=== PATIENT | female | born 1950 | race Caucasian/White ===

== ENCOUNTER 2025-07-21 20:44 | Inpatient (IN) | payer MEDICARE, BC ==
[~2025-07-21] VITALS: Ht 165.1 cm; Wt 79.0 kg
--- NOTE | 2025-07-21 21:04 | Physician Documentation ---
History of Present Illness ~ Chief Complaint: Confused Stated Complaint: TRANSFER Time Seen by MD: 21:03 OK to notify your PCP?: Yes HPI 74-year-old female, history of Parkinson's and dementia, transfer from an outside hospital for possible stroke rule out Per report and paperwork with the patient, she presented with worsening weakness and left-sided arm and leg difficulties. Her workup was unremarkable including laboratory testing and CT of the head and CTA head and neck. Neurology recommended admission for MRI. In the ED, the patient is pleasant and awake. She denies any concerns. She tells me she intermittently does have trouble with her left arm and leg, but denies any current weakness or numbness. She denies any symptoms currently. Medication Reconciliation Allergies: Coded Allergies: bee venom protein (honey bee) (Verified Allergy, Severe, ANAPHYLAXIS, 07/21/25) fentanyl (Unverified Allergy, Unknown, 07/21/25) haloperidol (Unverified Allergy, Unknown, 07/21/25) lamotrigine (Unverified Allergy, Unknown, 07/21/25) risperidone (Unverified Allergy, Unknown, 07/21/25) Review of Systems All Other Systems at this time: Reviewed and Negative Physical Exam Vital Signs: Temperature: 98.1, Source: Oral, Heart Rate: 69, Respiratory Rate: 16, BP: 150/94, Pulse Oximetry: 96, Weight: 79.000 Oxygen Flow Rate: 2.0 Physical Exam General: This is a pleasant older woman sitting calmly in bed, smiling, conversant HEENT: Atraumatic, oropharynx is moist Heart: Regular rate and rhythm, normal-appearing peripheral perfusion Lungs: normal work of breathing, normal oxygen saturation on room air Neuro: Alert and oriented, has some trouble with history questions. She does have grossly normal strength in all 4 extremities, does not seem to have significant left arm or leg weakness Psychiatric: Calm and cooperative with exam Progress Results/Orders Results/Orders Orders - RISHI MATAMOROS MD Page Hospitalist (07/21/25 21:35) Completed Orders - RISHI MATAMOROS MD Cbc/Diff (07/21/25 21:03) CMP (07/21/25 21:03) Hgb A1c (07/21/25 21:27) MG (07/21/25 21:27) PBNP (07/21/25 21:27) Medications Received in ER Medications (Trade) Dose Ordered Sig/Rachel Route PRN Reason Start Time Stop Time Status Last Admin Dose Admin (Lipitor tablet) 40 mg DAILY PO 07/21/25 22:55 07/22/25 00:11 40 MG (Ecotrin tablet) 1 tab DAILY PO 07/21/25 22:55 07/22/25 00:12 1 TAB Vital Signs 07/21/25 07/21/25 07/21/25 07/21/25 20:53 21:39 21:42 22:45 Temp 98.1 Pulse 69 67 75 Resp 16 12 14 15 B/P (MAP) 150/94 143/90 (107) 160/113 (129) Pulse Ox 96 97 98 O2 Flow Rate 2.0 2.0 2.0 Laboratory Tests Test 07/21/25 21:27 White Blood Count 10.6 Red Blood Count 4.59 Hemoglobin 13.8 Hematocrit 41.4 Mean Corpuscular Volume 90.3 Mean Corpuscular Hemoglobin 30.2 Mean Corpuscular Hemoglobin Concent 33.4 Red Cell Distribution Width 17.4 H Platelet Count 189 Mean Platelet Volume 9.1 Neutrophils (%) (Auto) 61.9 Lymphocytes (%) (Auto) 26.1 Monocytes (%) (Auto) 9.2 Eosinophils (%) (Auto) 1.8 Basophils (%) (Auto) 1.0 Neutrophils # (Auto) 6.6 Lymphocytes # (Auto) 2.8 Monocytes # (Auto) 1.0 H Eosinophils # (Auto) 0.2 Basophils # (Auto) 0.1 CBC Comment Platelet Estimate Normal Red Blood Cell Morphology Perf Basophilic Stippling Anisocytosis 1+ Prothrombin Time 10.9 INR International Normalized Ratio 1.1 Activated Partial Thromboplast Time 28 Coagulation Comments Sodium Level 143 Potassium Level 3.6 Chloride Level 104 Carbon Dioxide Level 29.8 Anion Gap 9 Blood Urea Nitrogen 19 H Creatinine 0.81 Estimated GFR/1.73 m2 69 BUN/Creatinine Ratio 23.5 H Glucose Level 95 Hemoglobin A1c 5.2 Calcium Level 9.1 Magnesium Level 2.0 Total Bilirubin 0.6 Aspartate Amino Transf (AST/SGOT) 15 Alanine Aminotransferase (ALT/SGPT) 16 Alkaline Phosphatase 47 Pro-B-Type Natriuretic Peptide 124 Total Protein 7.3 Albumin 3.3 L Globulin 4.0 Albumin/Globulin Ratio 0.8 L Chemistry Comments EKG/XRAY/CT/US/VASC/MRI Chest X-Ray : Additional Comments I personally interpreted the x-ray, and it shows: No focal consolidation, no significant pulmonary edema, no pneumothorax Consults/PCP Consults/PCP : Additional Comment Consult: I spoke to the internal medicine service, for admission in the hosp ital Medical Decision Making Additional information obtaine: old records Findings Reviewed records including imaging from outside hospital Differential Dx:Considerations: Include: anemia, CVA, dehydration, dysrhythmia, electrolyte imbalance, myocardial infarction, renal failure Additional Information The patient presents as a transfer with reported left-sided weakness. On my exam she does not have any significant weakness at this time. She has no other acute complaints. Labs will be repeated and she will be admitted to the medicine service for an MRI and further treatment. Departure Impression: Primary Impression: Weakness Referrals: NO PRIMARY CARE PROVIDER (PCP) Signature Scribe Signature: na Attestation: RISHI Douglas MD Jul 21, 2025 21:04
[2025-07-21 21:33] LABS: MEAN PLATELET VOLUME 9.1 FL (7.4-10.4); RED CELL DISTRIBUTION WIDTH 17.4 % (11.5-14.5)
[2025-07-21 22:01] LABS: CREATININE 0.81 MG/DL (0.40-0.90); TOTAL CARBON DIOXIDE 29.8 MMOL/L (24-32); eCRCL 56 ML/MIN; eGFR 69 ML/MIN
[2025-07-21 22:41] LABS: PLATELET ESTIMATE NORMAL
[2025-07-21] MEDS ORDERED: mag hydrox/Alum hydrox/simeth 30ml oral suspension PO PRN (22:55)
[2025-07-21] MEDS ORDERED: magnesium hydroxide 30ml (MOM) UD suspension PO PRN (22:55)
[2025-07-21] MEDS ORDERED: potassium Cl 40MEQ/1/2NS 520ml 520 ML IV PRN (22:55)
[2025-07-21] MEDS ORDERED: magnesium sulf-water 2g/50mL 50 ML IV PRN (22:55)
[2025-07-21] MEDS ORDERED: magnesium Cl slow-release 64mg tablet PO PRN (22:55)
[2025-07-21] MEDS ORDERED: potassium Cl 20 mEq SR tablet PO PRN ×2 (22:55)
[2025-07-21] MEDS ORDERED: magnesium sulf-water 4G/100mL 100 ML IV PRN (22:55)
--- NOTE | 2025-07-21 23:06 | HISTORY AND PHYSICAL-Residence ---
History & Physical Providers to CC Resident Creating Document: SHAHBAZ CARDENAS, RES ~ History of Present Illness Reason for Admit\Complaint: Stroke-like symptoms History of Present Illness This is a 74-year-old female with a history of NPH, dementia, bipolar disorder, Parkinson's disease was transferred from [facility] with chief complaint of weakness and functional decline. She was redirected by PCP to ED of [facility]. Patient is a poor historian and history is limited due to underlying dementia. Patient lives with her and endorses that lately she has not been very confident while walking and has had few falls related to her weakness and deconditioning. She denies any other symptoms including chest pain, shortness of breath, abdominal pain, swelling legs, nausea, vomiting, diarrhea. Patient ambulates using a cane at home. She has a history of knee replacement and metal in the right knee. ED course at [facility]: On examination, Patient had some weakness in the and had difficulty following commands, NIH score four, (inaccurate due to dementia). Patient was unable to transfer independently. Tele neurologist at [facility] was consulted who recommended stroke workup including CT, CTA and MRI. CT showed no acute intracranial abnormality but showed senescent changes of the brain and they recommended MRI to exclude acute ischemic process. CTA showed no significant stenosis or aneurysm, dissection. Chest x-ray was normal. Previous MRI few months ago showed NPH. Allergies: Coded Allergies: bee venom protein (honey bee) (Verified Allergy, Severe, ANAPHYLAXIS, 07/21/25) fentanyl (Unverified Allergy, Unknown, 07/21/25) haloperidol (Unverified Allergy, Unknown, 07/21/25) lamotrigine (Unverified Allergy, Unknown, 07/21/25) risperidone (Unverified Allergy, Unknown, 07/21/25) Past Medical History Past Medical History NPH, dementia, bipolar disorder, Parkinson's disease Past Surgical History Surgical History Comment Orthopedic surgery in right knee Past Social History Social History Comment Denies smoking, alcohol, drugs. Lives with and ambulates using a cane ROS ROS Constitutional: No fever, chills, dizziness, weakness, weight gain or loss Eyes: No pain, erythema, discharge, blurring of vision ENT: No sore throat, epistaxis, tinnitus Cardiovascular: No palpitations, syncope, lower extremity edema, paroxysmal nocturnal dyspnea Respiratory: No hemoptysis Gastrointestinal: Normal appetite. No nausea, vomiting, diarrhea, constipation, hematemesis, abdominal pain, bloating, melena or fresh blood Genitourinary: No frequency, urgency, nocturia, hematuria or dysuria Musculoskeletal: No arthralgias or myalgias Integumentary: No change in skin, hair, nails. No swelling, bruising, abrasions Neurologic: Poor memory, No headache, neck pain, numbness or tingling of the extremities, reduced referral management liaison strength, weakness in the left arm and leg Psychiatric: No delusions, depression, loss of interest in normal activity or change in sleep pattern, hallucinations, suicidal ideations Endocrine: Positive for fatigue, generalized weakness, no polydipsia, polyuria, change in appetite, heat or cold intolerance, sweating, dry skin Hematological: No bleeding, petechiae, bruising Allergies: No asthma or urticaria Exam Vitals: Vital Signs Date Time Temp Pulse Resp B/P (MAP) Pulse Ox O2 Delivery O2 Flow Rate FiO2 07/21/25 21:42 67 14 143/90 (107) 97 2.0 07/21/25 20:53 98.1 General: General: well developed, well nourished. Awake , alert, and oriented x4, resting comfortably in the bed, in no acute distress . Poor memory HEENT: Atraumatic, normocephalic, EOMI, anicteric sclera B; pink conjunctiva; PERRLA, normal oropharynx, moist oral and nasal mucosa. Tympanic membrane , nose , throat clear. Neck: Trachea midline. Supple, full range of motion, no JVD, bruit , hepatojugular reflex , lymphadenopathy or masses, or other lesions Cardiac: Regular rhythm, regular rate, 3/6 systolic ejection murmur in the right 2nd intercostal space radiating to the carotid, no rubs, or gallops. Normal S1 and S2, no S3 noticed. PMI is normal. Respiratory: Equal breath sounds bilaterally, no tachypnea; lungs clear to auscultation bilaterally, no wheezing ,rub or rales, or crackles. Chest wall is symmetric and without deformity. No signs of trauma. Chest wall is nontender. No signs of respiratory distress. Resonance is normal upon percussion bilaterally. Gastrointestinal: Abdomen symmetric, non-distended, soft, non-tender, normal bowel sounds x4 quadrant, normoactive, no hepatosplenomegaly , no masses , no bruit, no flank pain bilaterally. No voluntary guarding, rebound, or rigidity. No tenderness to percussion. No pulsatile masses. Equal femoral pulses. No Raymundo's sign or McBurney point tenderness. Back; no CVA tenderness bilaterally, no deformities. Neck and back are without deformity as well. No tenderness noted on palpation of the spinous processes. Spinous processes are midline. Cervical, thoracic, and lumbar paraspinal muscles are not tender and are without spasm. : normal external genitalia, without lesions, swelling, masses or tenderness. Musculoskeletal: Extremities, normal range of motion, non-tender, muscle strength 5/5 x 4. Negative Homans signs bilaterally on lower extremity. Distal pulses full symmetrical, no clubbing, cyanosis , edema. Neurological: Speech is clear, alert, and oriented x 4. No motor or sensory deficit, deep tendon reflexes normal, cerebellar intact. Cranial nerves II-XII intact. Psych: Alert and or appropriate, normal affect. Vascular: Good distal pulses, which are equal x4; capillary refill less than 2 seconds. Skin: Warm, dry, no pallor, no rash or petechiae. Diagnostic Data Last Recorded Lab Results: 07/21/25212607/21/252126 Advance Care Planning Advanced Care plannin - 30 Minutes (I spent a total of 17 minutes on reviewing various resuscitative measures/ ACP with the patient at the time of admission. The patient has decided on a full code status) Additional Plan Acute CVA with left-sided weakness and reduced referral management liaison strength Worsening Cognitive impairment History of recurrent falls Generalized weakness CBC, CMP, UA at other facility is within normal limits. Strength is 4/5 in right extremities and 3/5 in left extremities. No sensory or cranial nerve abnormalities. Patient has cognitive impairment, unknown baseline. CT and CTA did not show any acute intracranial abnormalities. Tele neurology at other facility recommended further evaluation with MRI. Echocardiogram, MRI, lipid panel, TSH pending. Continue telemetry monitoring. Swallow evaluation before initiating diet, physical therapy evaluation. Fall precautions in place. Started on aspirin 81 mg, Plavix 75 mg, atorvastatin 40 mg daily. NPH Dementia Parkinson's disease Bipolar disease Restart home medications after med rec Code Status: Full code DVT Prophylaxis: Heparin Analgesia/Sedation: Tylenol p.r.n. Lines/Tubes: PIV Gi Prophylaxis: None Nutrition: Regular diet after passing swallow test PT: Yes Prognosis: Guarded Disposition: Admit to neuro floor with telemetry monitoring, pending MRI and PT evaluation, [facility] Shahbaz Goddard MD Internal Medicine Resident PGY-2 Patient evaluated using HIPPA complaint AV device Agree with plan as discussed with the resident Theodore Alvarez MD Date of Service: Jul 21, 2025 Billing Provider: THEODORE ALVAREZ MD, DEEPIKA BANDI, RES Jul 21, 2025 23:06 THEODORE ALVAREZ MD Jul 22, 2025 04:55
[2025-07-21 23:19] LABS: APTT 28 SECONDS (22-32); INR 1.1 INR
--- NOTE | 2025-07-21 23:19 | RADIOLOGY REPORT ---
EXAM: DI CHEST,SINGLE VIEW TECHNIQUE: Single frontal chest radiograph CLINICAL HISTORY: sob COMPARISON: None FINDINGS/IMPRESSION: The lungs are clear. Nonspecific mild bilateral perihilar prominence. The cardiomediastinal silhouette is unremarkable. No pleural effusion or pneumothorax. No acute osseous abnormality.
[2025-07-21 23:24] LABS: PRO BRAIN NATRIURETIC PEPTIDE 124 PG/ML (0-125)
[2025-07-22] VITALS (8 sets, daily range): BP systolic 110–158; BP diastolic 76–99; PULSE 67–74; RESP 12–16; TEMP 97.4–98.6; O2SAT 95–98
[2025-07-22] MEDS: aspirin 81mg, enteric-coated 1 TAB TABLET.DR PO SCH (00:12)
[2025-07-22] MEDS ORDERED: IBUP600T52 PO (06:45)
[2025-07-22] MEDS ORDERED: DIVA500T9 PO (06:45)
[2025-07-22] MEDS ORDERED: SERT-433 PO (06:45)
[2025-07-22 07:23] LABS: MEAN PLATELET VOLUME 9.5 FL (7.4-10.4); RED CELL DISTRIBUTION WIDTH 17.6 % (11.5-14.5)
[2025-07-22 07:44] LABS: CHOL/HDL RATIO 3.7 (0.00-4.99); CREATININE 0.78 MG/DL (0.40-0.90); LDL CHOLESTEROL 108 MG/DL (50-100); TOTAL CARBON DIOXIDE 29.8 MMOL/L (24-32); eCRCL 58 ML/MIN; eGFR 72 ML/MIN
[2025-07-22] MEDS: K and/or MAG REPLACEMENT MC SCH (08:00)
[2025-07-22] MEDS: donepezil 5mg tablet PO SCH (08:00)
[2025-07-22] MEDS: docusate sod 100mg capsule PO SCH (08:00)
[2025-07-22] MEDS: heparin, porcine 5000 units/ml vial SQ SCH (08:42)
[2025-07-22 10:40] LABS: LEUKOCYTE ESTERASE ,URINE NEGATIVE (Neg); NITRITES, URINE NEGATIVE (Neg); OCCULT BLOOD,URINE MODERATE (Neg)
[2025-07-22 10:42] LABS: UA COLLECTION TYPE URINAL
[2025-07-22 10:47] LABS: MUCUS STRANDS FEW /LPF (Neg); SQUAMOUS EPITHELIAL CELL,UR FEW /LPF (FEW)
--- NOTE | 2025-07-22 12:08 | PROGRESS NOTE ---
Daily Progress Note Providers to CC Feeling better Today, resting comfortably in the bed ~ Central Line/PICC still needed: No Olson-Non Protocol Olson Indications Met/Not Met: F/C Indications Not Met Antibiotic Timeout Antibiotic Ordered?: Yes MRSA Education MRSA Education Provided to pt: Yes Subjective As above Objective Vital Signs Date Time Temp Pulse Resp B/P (MAP) Pulse Ox O2 Delivery O2 Flow Rate FiO2 07/22/25 11:00 97.5 72 16 110/76 (87) 95 Nasal Cannula 2.0 Vital signs, stable ,afebrile. Pulse Oximetry reflects adequate oxygenation. On two L oxygen nasal cannula General: well developed, well nourished. Awake , alert, and oriented x4, resting comfortably in the bed, in no acute distress . Skin: Warm, dry, no pallor, no rash or petechiae. HEENT: Atraumatic, normocephalic, EOMI, anicteric sclera B; pink conjunctiva; PERRLA, normal oropharynx, moist oral and nasal mucosa. Tympanic membrane , nose , throat clear. Neck: Trachea midline. Supple, full range of motion, no JVD, bruit , hepatojugular reflex , lymphadenopathy or masses, or other lesions Cardiac: Regular rhythm, regular rate no murmurs, rubs, or gallops. Normal S1 and S2, no S3 noticed. PMI is normal. Respiratory: Equal breath sounds bilaterally, no tachypnea; lungs clear to auscultation bilaterally, no wheezing ,rub or rales, or crackles. Chest wall is symmetric and without deformity. No signs of trauma. Chest wall is nontender. No signs of respiratory distress. Resonance is normal upon percussion bilaterally. Gastrointestinal: Abdomen symmetric, non-distended, soft, non-tender, normal bowel sounds x4 quadrant, normoactive, no hepatosplenomegaly , no masses , no bruit, no flank pain bilaterally. No voluntary guarding, rebound, or rigidity. No tenderness to percussion. No pulsatile masses. Equal femoral pulses. No Raymundo's sign or McBurney point tenderness. Back; no CVA tenderness bilaterally, no deformities. Neck and back are without deformity as well. No tenderness noted on palpation of the spinous processes. Spinous processes are midline. Cervical, thoracic, and lumbar paraspinal muscles are not tender and are without spasm. Musculoskeletal: Extremities, normal range of motion, non-tender, muscle strength 5/5 x 4. Negative Homans signs bilaterally on lower extremity. Distal pulses full symmetrical, no clubbing, cyanosis , edema. Neurological: Speech is clear, alert, and oriented x 4. No motor or sensory deficit, deep tendon reflexes normal, cerebellar intact. Cranial nerves II-XII intact. Psych: Alert and or appropriate, normal affect. Vascular: Good distal pulses, which are equal x4; capillary refill less than 2 seconds. Lymphatic, no lymphadenopathy. Result Diagram: 07/22/25 0637 07/22/25 0637 Coagulation Studies Laboratory Tests Test 07/21/25 21:27 Prothrombin Time 10.9 SECONDS (9.0-12.0) INR International Normalized Ratio 1.1 INR Activated Partial Thromboplast Time 28 SECONDS (22-32) Coagulation Comments Problem\Assessment\Plan Slow Plan Acute CVA with left-sided weakness and reduced classification clerk strength Worsening Cognitive impairment History of recurrent falls Generalized weakness CBC, CMP, UA at other facility is within normal limits. Strength is 4/5 in right extremities and 3/5 in left extremities. No sensory or cranial nerve abnormalities. Patient has cognitive impairment, unknown baseline. CT and CTA did not show any acute intracranial abnormalities. Tele neurology at other facility recommended further evaluation with MRI. Echocardiogram, lipid panel, TSH pending. Continue telemetry monitoring. Swallow evaluation before initiating diet, physical therapy evaluation. Fall precautions in place. Started on aspirin 81 mg, Plavix 75 mg, atorvastatin 40 mg daily. MRI of the head negative for stroke NPH Dementia Parkinson's disease Bipolar disease Restart home medications after med rec Code Status: Full code DVT Prophylaxis: Heparin Analgesia/Sedation: Tylenol p.r.n. Lines/Tubes: PIV Gi Prophylaxis: None Nutrition: Regular diet after passing swallow test PT: Yes Prognosis: Guarded Sepsis Screening Reassessment Date: Jul 22, 2025 Date of Service: Jul 22, 2025 Billing Provider: XANDER LORENZO MD Common Visit Codes: [id number] INP/OBS CARE(HIGH) XANDER LORENZO MD Jul 22, 2025 12:08
--- NOTE | 2025-07-22 19:04 | RADIOLOGY REPORT ---
PROCEDURE: MR MRI HEAD INDICATION: stroke like symptoms EXAM DATE: 07/22/2025 05:19 PM COMPARISON: None TECHNIQUE: MRI of the brain without intravenous contrast. FINDINGS: No foci of restricted diffusion to suggest an acute infarct. There is no hemorrhage, mass, mass effect, midline shift, hydrocephalus, or herniation Generalized brain atrophy. Periventricular white matter T2/FLAIR signal hyperintensities, nonspecific, likely related to chronic small-vessel ischemic disease. Major flow voids at the skull base are maintained. The orbits are unremarkable. The paranasal sinuses and mastoid air cells are predominantly clear. The bone marrow signal is unremarkable. IMPRESSION: No acute intracranial abnormality Atrophy and chronic small-vessel ischemic changes
[2025-07-23] VITALS (9 sets, daily range): BP systolic 136–150; BP diastolic 83–93; PULSE 70–74; RESP 13–18; TEMP 96.9–98.8; O2SAT 94–97
[2025-07-23 06:33] LABS: MEAN PLATELET VOLUME 9.6 FL (7.4-10.4); RED CELL DISTRIBUTION WIDTH 17.1 % (11.5-14.5)
[2025-07-23 06:57] LABS: CREATININE 0.85 MG/DL (0.40-0.90); TOTAL CARBON DIOXIDE 28.4 MMOL/L (24-32); eCRCL 53 ML/MIN; eGFR 66 ML/MIN
--- NOTE | 2025-07-23 15:33 | CARDIOLOGY REPORT ---
APPROVED REPORT EXAM: Comprehensive 2D, Doppler, and color-flow Echocardiogram. Patient Location: 3024B Blood Pressure: 136/90 mmHg Heart Rate: 70 bpm Rhythm: NSR Indications Hypertension CVA/TIA No cover operator No previous echo 2D Dimensions LA Diam 3.1 cm IVSd 1.3 (0.7-1.1cm) LVDd 4.1 cm PWd 1.2 (0.7-1.1cm) IVSs 1.5 (0.8-1.2cm) LVDs 2.5 (2.5-4.0cm) Aortic Root(2D) 3.3 cm PWs 1.5 (0.8-1.2cm) LVOT Diameter 2.07 (1.8-2.4cm) LVEF(%) 71.6 (>50%) Ao Asc Diam. 4.09 cm IVC 10.05 mm FS (%) 40.5 % SV 54.6 ml CO 3.8 L/min M-Mode Dimensions MV EPSS 0.5 (<0.5cm) Aortic Valve AoV Peak Louis. 253.3 cm/s AoV VTI 44.8 cm AO Peak GR. 25.7 mmHg AO Mean GR. 14 mmHg LVOT VTI 33.74 cm LVOT Peak Louis. 147.6 cm/s CHARLES(VTI)/BSA 2.53 cm2/m2 CHARLES (VTI) 2.53 cm2 AV DI 0.75 % Mitral Valve MV E Velocity 55.2 cm/s MV Peak Gr. 2 mmHg MV DECEL TIME 204 ms MV A Velocity 81.4 cm/s MV PHT 64 ms E/A Ratio 0.7 MVA (PHT) 3.44 cm2 MV VMax 61.7 cm/s TDI Medial E' P. V 10.18 cm/s E/Medial E' 5.4 Tricuspid Valve TR P. Velocity 263 cm/s RAP ESTIMATE 10 mmHg TR Peak Gr. 28 mmHg RVSP 38 mmHg Pulmonary Vein S1 Velocity 46.4 cm/s D2 Velocity 27.8 cm/s PVa Velocity 30.9 cm/s PVa Duration 96 msec LEFT VENTRICLE Normal LV size and function. Mild concentric hypertrophy. Overall LVEF is 70%. RIGHT VENTRICLE RV appears normal in size and contractility. RVSP is estimated at 38 mmHG. ATRIA The left atrium size is normal. AORTIC VALVE Trileaflet AV appears sclerotic without significant stenosis. No insufficiency. MITRAL VALVE MV is thickened with mild annular calcification and no stenosis. Trace mitral regurgitation. TRICUSPID VALVE The tricuspid valve is normal in structure. Trace tricuspid regurgitation. PULMONIC VALVE The pulmonary valve is normal in structure. Trace pulmonic insufficiency. GREAT VESSELS The aortic root is normal in size. The ascending aorta is measured at 4.1 cm. The IVC is normal in size and collapses >50% with inspiration. PERICARDIUM There is no pericardial effusion. Other Information Study Quality: Adequate Conclusion Overall LVEF is 70%. RV appears normal in size and contractility. RVSP is estimated at 38 mmHG. Trileaflet AV appears sclerotic without significant stenosis. No insufficiency. Trace mitral regurgitation. Trace tricuspid regurgitation. There is no pericardial effusion.
--- NOTE | 2025-07-23 17:35 | PROGRESS NOTE ---
Daily Progress Note Providers to CC No new complaint today, resting comfortably in the bed ~ Central Line/PICC still needed: No Olson-Non Protocol Olson Indications Met/Not Met: F/C Indications Not Met Antibiotic Timeout Antibiotic Ordered?: Yes MRSA Education MRSA Education Provided to pt: Yes Subjective As above Objective Vital Signs Date Time Temp Pulse Resp B/P (MAP) Pulse Ox O2 Delivery O2 Flow Rate FiO2 07/23/25 15:00 97.4 70 14 136/89 (105) 95 Nasal Cannula 2.0 Vital signs, stable ,afebrile. Pulse Oximetry reflects adequate oxygenation. 2 L oxygen nasal cannula General: well developed, well nourished. Awake , alert, and oriented x4, resting comfortably in the bed, in no acute distress . Skin: Warm, dry, no pallor, no rash or petechiae. HEENT: Atraumatic, normocephalic, EOMI, anicteric sclera B; pink conjunctiva; PERRLA, normal oropharynx, moist oral and nasal mucosa. Tympanic membrane , nose , throat clear. Neck: Trachea midline. Supple, full range of motion, no JVD, bruit , hepatojugular reflex , lymphadenopathy or masses, or other lesions Cardiac: Regular rhythm, regular rate no murmurs, rubs, or gallops. Normal S1 and S2, no S3 noticed. PMI is normal. Respiratory: Equal breath sounds bilaterally, no tachypnea; lungs clear to auscultation bilaterally, no wheezing ,rub or rales, or crackles. Chest wall is symmetric and without deformity. No signs of trauma. Chest wall is nontender. No signs of respiratory distress. Resonance is normal upon percussion bilaterally. Gastrointestinal: Abdomen symmetric, non-distended, soft, non-tender, normal bowel sounds x4 quadrant, normoactive, no hepatosplenomegaly , no masses , no bruit, no flank pain bilaterally. No voluntary guarding, rebound, or rigidity. No tenderness to percussion. No pulsatile masses. Equal femoral pulses. No Raymundo's sign or McBurney point tenderness. Back; no CVA tenderness bilaterally, no deformities. Neck and back are without deformity as well. No tenderness noted on palpation of the spinous processes. Spinous processes are midline. Cervical, thoracic, and lumbar paraspinal muscles are not tender and are without spasm. Musculoskeletal: Extremities, normal range of motion, non-tender, muscle strength 5/5 x 4. Negative Homans signs bilaterally on lower extremity. Distal pulses full symmetrical, no clubbing, cyanosis , edema. Neurological: Speech is clear, alert, and oriented x 4. No motor or sensory deficit, deep tendon reflexes normal, cerebellar intact. Cranial nerves II-XII intact. Psych: Alert and or appropriate, normal affect. Vascular: Good distal pulses, which are equal x4; capillary refill less than 2 seconds. Lymphatic, no lymphadenopathy. 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 Strength is 4/5 in right extremities and 3/5 in left extremities. No sensory or cranial nerve abnormalities. Patient has cognitive impairment, unknown baseline. CT and CTA did not show any acute intracranial abnormalities. Tele neurology at other facility recommended further evaluation with MRI. Echocardiogram, lipid panel, TSH pending. Continue telemetry monitoring. Swallow evaluation before initiating diet, physical therapy evaluation. Fall precautions in place. Started on aspirin 81 mg, Plavix 75 mg, atorvastatin 40 mg daily. MRI of the head negative for stroke NPH Dementia Parkinson's disease Bipolar disease Restart home medications after med rec Code Status: Full code DVT Prophylaxis: Heparin Analgesia/Sedation: Tylenol p.r.n. Lines/Tubes: PIV Gi Prophylaxis: None Nutrition: Regular diet after passing swallow test PT: Yes Prognosis: Guarded Date of Service: Jul 23, 2025 Billing Provider: XANDER LORENZO MD Common Visit Codes: [id number] INP/OBS CARE(HIGH) XANDER LORENZO MD Jul 23, 2025 17:35
[2025-07-24] VITALS (11 sets, daily range): BP systolic 83–144; BP diastolic 50–95; PULSE 68–82; RESP 12–19; TEMP 97.4–98.9; O2SAT 91–94
[2025-07-24 06:03] LABS: MEAN PLATELET VOLUME 9.1 FL (7.4-10.4); RED CELL DISTRIBUTION WIDTH 16.8 % (11.5-14.5)
[2025-07-24 06:45] LABS: CREATININE 0.77 MG/DL (0.40-0.90); TOTAL CARBON DIOXIDE 27.9 MMOL/L (24-32); eCRCL 59 ML/MIN; eGFR 73 ML/MIN
--- NOTE | 2025-07-24 19:01 | PROGRESS NOTE ---
Daily Progress Note Providers to CC Feels better today , awaiting placement to rehab facility Central Line/PICC still needed: No Olson-Non Protocol Olson Indications Met/Not Met: F/C Indications Not Met Antibiotic Timeout Antibiotic Ordered?: Yes MRSA Education MRSA Education Provided to pt: Yes Subjective As above Objective Vital Signs Date Time Temp Pulse Resp B/P (MAP) Pulse Ox O2 Delivery O2 Flow Rate FiO2 07/24/25 15:00 97.4 82 12 133/80 (97) 93 Room Air 07/24/25 08:00 2.0 Vital signs, stable ,afebrile. Pulse Oximetry reflects adequate oxygenation. On 2 L oxygen nasal cannula General: well developed, well nourished. Awake , alert, and oriented x4, resting comfortably in the bed, in no acute distress . Skin: Warm, dry, no pallor, no rash or petechiae. HEENT: Atraumatic, normocephalic, EOMI, anicteric sclera B; pink conjunctiva; PERRLA, normal oropharynx, moist oral and nasal mucosa. Tympanic membrane , nose , throat clear. Neck: Trachea midline. Supple, full range of motion, no JVD, bruit , hepatojugular reflex , lymphadenopathy or masses, or other lesions Cardiac: Regular rhythm, regular rate no murmurs, rubs, or gallops. Normal S1 and S2, no S3 noticed. PMI is normal. Respiratory: Equal breath sounds bilaterally, no tachypnea; lungs clear to auscultation bilaterally, no wheezing ,rub or rales, or crackles. Chest wall is symmetric and without deformity. No signs of trauma. Chest wall is nontender. No signs of respiratory distress. Resonance is normal upon percussion bilaterally. Gastrointestinal: Abdomen symmetric, non-distended, soft, non-tender, normal bowel sounds x4 quadrant, normoactive, no hepatosplenomegaly , no masses , no bruit, no flank pain bilaterally. No voluntary guarding, rebound, or rigidity. No tenderness to percussion. No pulsatile masses. Equal femoral pulses. No Raymundo's sign or McBurney point tenderness. Back; no CVA tenderness bilaterally, no deformities. Neck and back are without deformity as well. No tenderness noted on palpation of the spinous processes. Spinous processes are midline. Cervical, thoracic, and lumbar paraspinal muscles are not tender and are without spasm. Musculoskeletal: Extremities, normal range of motion, non-tender, muscle strength 5/5 x 4. Negative Homans signs bilaterally on lower extremity. Distal pulses full symmetrical, no clubbing, cyanosis , edema. Neurological: Speech is clear, alert, and oriented x 4. No motor or sensory deficit, deep tendon reflexes normal, cerebellar intact. Cranial nerves II-XII intact. Psych: Alert and or appropriate, normal affect. Vascular: Good distal pulses, which are equal x4; capillary refill less than 2 seconds. Lymphatic, no lymphadenopathy. 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 Strength is 4/5 in right extremities and 3/5 in left extremities. No sensory or cranial nerve abnormalities. Patient has cognitive impairment, unknown baseline. CT and CTA did not show any acute intracranial abnormalities. Tele neurology at other facility recommended further evaluation with MRI. Echocardiogram, lipid panel, TSH pending. Continue telemetry monitoring. Swallow evaluation before initiating diet, physical therapy evaluation. Fall precautions in place. Started on aspirin 81 mg, Plavix 75 mg, atorvastatin 40 mg daily. MRI of the head negative for stroke NPH Dementia Parkinson's disease Bipolar disease Restart home medications after med rec Code Status: Full code DVT Prophylaxis: Heparin Analgesia/Sedation: Tylenol p.r.n. Lines/Tubes: PIV Gi Prophylaxis: None Nutrition: Regular diet after passing swallow test PT: Yes Prognosis: Guarded Sepsis Screening Reassessment Date: Jul 24, 2025 Date of Service: Jul 24, 2025 Billing Provider: XANDER LORENZO MD Common Visit Codes: [id number] INP/OBS CARE(HIGH) XANDER LORENZO MD Jul 24, 2025 19:01
[2025-07-25] VITALS (9 sets, daily range): BP systolic 102–154; BP diastolic 56–92; PULSE 62–100; RESP 13–18; TEMP 97–98.6; O2SAT 93–97
[2025-07-25 06:02] LABS: MEAN PLATELET VOLUME 9.3 FL (7.4-10.4); RED CELL DISTRIBUTION WIDTH 17.2 % (11.5-14.5)
[2025-07-25 06:20] LABS: CREATININE 0.93 MG/DL (0.40-0.90); TOTAL CARBON DIOXIDE 31.7 MMOL/L (24-32); eCRCL 48 ML/MIN; eGFR 59 ML/MIN
[2025-07-25] MEDS: docusate sodium 100mg/10ml UD cup PO SCH (09:05)
[2025-07-25] MEDS: ringers solution, lacted 1,000 ML IV ONE (09:26)
--- NOTE | 2025-07-25 18:57 | PROGRESS NOTE ---
Daily Progress Note Providers to CC ~ no new complaint today, resting comfortably in the bed Central Line/PICC still needed: No Olson-Non Protocol Olson Indications Met/Not Met: F/C Indications Not Met Antibiotic Timeout Antibiotic Ordered?: Yes MRSA Education MRSA Education Provided to pt: Yes Subjective As above Objective Vital Signs Date Time Temp Pulse Resp B/P (MAP) Pulse Ox O2 Delivery O2 Flow Rate FiO2 07/25/25 15:00 98.0 90 16 132/83 (99) 94 Nasal Cannula 2.0 Vital signs, stable ,afebrile. Pulse Oximetry reflects adequate oxygenation. On 2 L oxygen nasal cannula General: well developed, well nourished. Awake , alert, and oriented x4, resting comfortably in the bed, in no acute distress . Skin: Warm, dry, no pallor, no rash or petechiae. HEENT: Atraumatic, normocephalic, EOMI, anicteric sclera B; pink conjunctiva; PERRLA, normal oropharynx, moist oral and nasal mucosa. Tympanic membrane , nose , throat clear. Neck: Trachea midline. Supple, full range of motion, no JVD, bruit , hepatojugular reflex , lymphadenopathy or masses, or other lesions Cardiac: Regular rhythm, regular rate no murmurs, rubs, or gallops. Normal S1 and S2, no S3 noticed. PMI is normal. Respiratory: Equal breath sounds bilaterally, no tachypnea; lungs clear to auscultation bilaterally, no wheezing ,rub or rales, or crackles. Chest wall is symmetric and without deformity. No signs of trauma. Chest wall is nontender. No signs of respiratory distress. Resonance is normal upon percussion bilaterally. Gastrointestinal: Abdomen symmetric, non-distended, soft, non-tender, normal bowel sounds x4 quadrant, normoactive, no hepatosplenomegaly , no masses , no bruit, no flank pain bilaterally. No voluntary guarding, rebound, or rigidity. No tenderness to percussion. No pulsatile masses. Equal femoral pulses. No Raymundo's sign or McBurney point tenderness. Back; no CVA tenderness bilaterally, no deformities. Neck and back are without deformity as well. No tenderness noted on palpation of the spinous processes. Spinous processes are midline. Cervical, thoracic, and lumbar paraspinal muscles are not tender and are without spasm. Musculoskeletal: Extremities, normal range of motion, non-tender, muscle strength 5/5 x 4. Negative Homans signs bilaterally on lower extremity. Distal pulses full symmetrical, no clubbing, cyanosis , edema. Neurological: Speech is clear, alert, and oriented x 4. No motor or sensory deficit, deep tendon reflexes normal, cerebellar intact. Cranial nerves II-XII intact. Psych: Alert and or appropriate, normal affect. Vascular: Good distal pulses, which are equal x4; capillary refill less than 2 seconds. Lymphatic, no lymphadenopathy. Result Diagram: 07/25/25 0543 07/25/25 0543 Coagulation Studies Laboratory Tests Test 07/21/25 21:27 Prothrombin Time 10.9 SECONDS (9.0-12.0) INR International Normalized Ratio 1.1 INR Activated Partial Thromboplast Time 28 SECONDS (22-32) Coagulation Comments Problem\Assessment\Plan Assessment/ Plan Acute CVA with left-sided weakness and reduced it service technician strength Worsening Cognitive impairment History of recurrent falls Generalized weakness CBC, CMP, UA at other facility is within normal limits. Strength is 4/5 in right extremities and 3/5 in left extremities. No sensory or cranial nerve abnormalities. Patient has cognitive impairment, unknown baseline. CT and CTA did not show any acute intracranial abnormalities. Tele neurology at other facility recommended further evaluation with MRI. Echocardiogram, lipid panel, TSH pending. Continue telemetry monitoring. Swallow evaluation before initiating diet, physical therapy evaluation. Fall precautions in place. Started on aspirin 81 mg, Plavix 75 mg, atorvastatin 40 mg daily. MRI of the head negative for stroke NPH Dementia Parkinson's disease Bipolar disease Restart home medications after med rec Code Status: Full code DVT Prophylaxis: Heparin Analgesia/Sedation: Tylenol p.r.n. Lines/Tubes: PIV Gi Prophylaxis: None Nutrition: Regular diet after passing swallow test PT: Yes Prognosis: Guarded Sepsis Screening Reassessment Date: Jul 25, 2025 Date of Service: Jul 25, 2025 Billing Provider: XANDER LORENZO MD Common Visit Codes: [id number] INP/OBS CARE(HIGH) XANDER LORENZO MD Jul 25, 2025 18:57
[2025-07-26] VITALS (7 sets, daily range): BP systolic 109–160; BP diastolic 58–98; PULSE 60–72; RESP 15–20; TEMP 96.3–97.6; O2SAT 93–97
[2025-07-26] MEDS: HYDROcodone/acetaminophen 5mg/325mg tablet PO PRN (01:36)
[2025-07-26 06:48] LABS: MEAN PLATELET VOLUME 9.5 FL (7.4-10.4); RED CELL DISTRIBUTION WIDTH 16.6 % (11.5-14.5)
[2025-07-26 07:37] LABS: CREATININE 0.72 MG/DL (0.40-0.90); TOTAL CARBON DIOXIDE 31.6 MMOL/L (24-32); eCRCL 63 ML/MIN; eGFR 79 ML/MIN
[2025-07-26] MEDS ORDERED: magnesium Cl slow-release 64mg tablet PO PRN ×2 (08:15→14:55)
[2025-07-26] MEDS ORDERED: potassium Cl 20 mEq SR tablet PO PRN ×4 (08:15→14:55)
[2025-07-26] MEDS ORDERED: magnesium sulf-water 4G/100mL 100 ML IV PRN ×2 (08:15→14:55)
[2025-07-26] MEDS ORDERED: magnesium sulf-water 2g/50mL 50 ML IV PRN ×3 (08:15→14:55)
[2025-07-26] MEDS: ondansetron/PF 4mg/2ml inj IV PRN (09:35)
[2025-07-26] MEDS: potassium Cl 40MEQ/1/2NS 520ml 520 ML IV PRN (10:17)
[2025-07-26] MEDS ORDERED: hyoscyamine 0.125mg TAB.SUBL SL PRN (12:30)
--- NOTE | 2025-07-26 19:32 | PROGRESS NOTE ---
Daily Progress Note Providers to CC ~ Antibiotic Timeout Antibiotic Ordered?: No Subjective I spoke with the patient's today at length and the patient has a end-stage dementia and has been on palliative care for six-month the patient is made it clear that she will be able to take the patient home on hospice care were waiting for transportation this will likely occur on Thursday07/28/2025. All orders were changed to comfort care orders today Objective Vital Signs Date Time Temp Pulse Resp B/P (MAP) Pulse Ox O2 Delivery O2 Flow Rate FiO2 07/26/25 18:00 97.3 68 18 139/84 (102) 96 Nasal Cannula 2.0 Result Diagram: 07/26/2561407/26/25614 Gen. No acute distress alert and oriented to person Lungs clear to ascultation bilaterally, no wheezes rales or rhonchi appreciated Heart normal sinus rhythm no murmurs rubs or clicks noted Abdomen soft nontender bowel sounds are normoactive Lower extremities no clubbing cyanosis, nor edema appreciated bilaterally Coagulation Studies Laboratory Tests Test 07/21/25 21:27 Prothrombin Time 10.9 SECONDS (9.0-12.0) INR International Normalized Ratio 1.1 INR Activated Partial Thromboplast Time 28 SECONDS (22-32) Coagulation Comments Problem\Assessment\Plan Assessment/ Plan Acute CVA with left-sided weakness and 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 Strength is 4/5 in right extremities and 3/5 in left extremities. No sensory or cranial nerve abnormalities. Patient has cognitive impairment, unknown baseline. CT and CTA did not show any acute intracranial abnormalities. Tele neurology at other facility recommended further evaluation with MRI. Echocardiogram, lipid panel, TSH pending. Continue telemetry monitoring. Swallow evaluation before initiating diet, physical therapy evaluation. Fall precautions in place. Started on aspirin 81 mg, Plavix 75 mg, atorvastatin 40 mg daily. MRI of the head negative for stroke 07/26 all non comfort care medications were discontinued including aspirin and Plavix and atorvastatin NPH Dementia Parkinson's disease Bipolar disease Comfort care meds only Code Status: Full code DVT Prophylaxis: Heparin Analgesia/Sedation: Tylenol p.r.n. Lines/Tubes: PIV Gi Prophylaxis: None Nutrition: Regular diet after passing swallow test PT: Yes Prognosis: Guarded 07/26/2025 I met with the patient's today who explained how the patient has been on palliative care for six months and has a end-stage dementia we did discuss ACP today and spent 19 minutes discussing ACP today. All non comfort care measures were discontinued anticipated the patient will be discharged to [facility] hospice care when transportation is available anticipate on 07/28/2025. Date of Service: Jul 26, 2025 Billing Provider: ANGEL CACERES DO Common Visit Codes: [id number] INP/OBS CARE(MOD) Secondary Visit Codes: [id number] CARE PLAN 30 MINUTES ANGEL CACERES DO Jul 26, 2025 19:32
[2025-07-26] MEDS ORDERED: K and/or MAG REPLACEMENT MC SCH (20:00)
[2025-07-27] MEDS: morphine 10mg/0.5ml (conc. morphine) oral syringe PO PRN (00:13)
[2025-07-27 06:00] VITALS: BP 131/84; PULSE 74; RESP 12; TEMP 97.4; O2SAT 93
[2025-07-27 08:00] VITALS: RESP 12; O2SAT 93
--- NOTE | 2025-07-27 11:12 | PROGRESS NOTE ---
Daily Progress Note Providers to CC ~ Antibiotic Timeout Antibiotic Ordered?: No Subjective The patient is resting comfortably in bed and was requesting to be brought back to bed I informed her she was not bed the patient has no acute complaints or concerns and none were voiced by nursing staff. Objective Vital Signs Date Time Temp Pulse Resp B/P (MAP) Pulse Ox O2 Delivery O2 Flow Rate FiO2 07/27/25 08:00 12 93 Nasal Cannula 2.0 07/27/25 06:00 97.4 74 131/84 (100) Result Diagram: 07/26/25 0615 07/26/25 0615 Gen. 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 Strength is 4/5 in right extremities and 3/5 in left extremities. No sensory or cranial nerve abnormalities. Patient has cognitive impairment, unknown baseline. CT and CTA did not show any acute intracranial abnormalities. Tele neurology at other facility recommended further evaluation with MRI. Echocardiogram, lipid panel, TSH pending. Continue telemetry monitoring. Swallow evaluation before initiating diet, physical therapy evaluation. Fall precautions in place. Started on aspirin 81 mg, Plavix 75 mg, atorvastatin 40 mg daily. MRI of the head negative for stroke 07/26 all non comfort care medications were discontinued including aspirin and Plavix and atorvastatin NPH Dementia Parkinson's disease Bipolar disease Comfort care meds only The patient has a advanced dementia as well as underlining NPH and Parkinson's disease and has a high probability of living less than six months. Code Status: Full code DVT Prophylaxis: Heparin Analgesia/Sedation: Tylenol p.r.n. Lines/Tubes: PIV Gi Prophylaxis: None Nutrition: Regular diet after passing swallow test PT: Yes Prognosis: Guarded 07/26/2025 I met with the patient's today who explained how the patient has been on palliative care for six months and has a end-stage dementia we did discuss ACP today and spent 19 minutes discussing ACP today. All non comfort care measures were discontinued anticipated the patient will be discharged to [facility] hospice care when transportation is available anticipate on 07/28/2025. Date of Service: Jul 27, 2025 Billing Provider: ANGEL CACERES DO Common Visit Codes: [id number] INP/OBS CARE(LOW) ANGEL CACERES DO Jul 27, 2025 11:12
[2025-07-27 18:00] VITALS: BP 131/86; PULSE 70; RESP 16; TEMP 97.2; O2SAT 92
[2025-07-27 20:00] VITALS: RESP 22; O2SAT 94
--- NOTE | 2025-07-28 14:18 | DISCHARGE SUMMARY ---
Discharge Summary Providers to CC ~ Discharge Summary Admission Diagnosis: STROKE LIKE SYMPTOMS Hospital Course DATE OF ADMISSION: 07/21/2025 DATE OF DISCHARGE: 07/28/2025 at 06:03 Discharge Diagnosis\\Comment: Acute CVA ruled out Advanced dementia Parkinson's disease NPH Bipolar disorder Operations\\Procedures: None Consultants: None Complications: None Condition on DC: Stable Discharge Summary: The patient was admitted by resident physician SHAHBAZ Chi , under the supervision of THEODORE Wallace MD with the following HPI:"This is a 74-year-old female with a history of NPH, dementia, bipolar disorder, Parkinson's disease was transferred from [facility] with chief complaint of weakness and functional decline. She was redirected by PCP to ED of [facility]. Patient is a poor historian and history is limited due to underlying dementia. Patient lives with her and endorses that lat vanda she has not been very confident while walking and has had few falls related to her weakness and deconditioning. She denies any other symptoms including chest pain, shortness of breath, abdominal pain, swelling legs, nausea, vomiting, diarrhea. Patient ambulates using a cane at home. She has a history of knee replacement and metal in the right knee. ED course at [facility]: On examination, Patient had some weakness in the and had difficulty following commands, NIH score four, (inaccurate due to dementia). Patient was unable to transfer independently. Tele neurologist at [facility] was consulted who recommended stroke workup including CT, CTA and MRI. CT showed no acute intracranial abnormality but showed senescent changes of the brain and they recommended MRI to exclude acute ischemic process. CTA showed no significant stenosis or aneurysm, dissection. Chest x-ray was normal. Previous MRI few months ago showed NPH." The patient has a MRI of the head that has negative for an acute stroke or any acute findings- when I evaluated the patient the patient was oriented to self. The patient is was at bedside and informed me that the goal was to get home with hospice care as the has been a primary caregiver and the patient has been on palliative care for six months. The patient also has NPH and Parkinson's disease and that has a high probability the patient will not survive the six-month benchmark for hospice and will likely pass in the next couple of months however she is not admitted. The patient was seen and evaluated on the late morning of the and transportation picked up the patient at 0603 on the .. Gen: No acute distress alert and oriented to person Lungs no respiratory distress appreciated Neuro no abnormal upper or lower extremity movements appreciated (note physical exam was done on the late morning of 07/27/2025) Less than 30 minutes was spent on this discharge. *Problems/Diagnosis: (1) Advanced dementia Total Time Spent on D/C: Up to 30 Minutes Date of Service: Jul 27, 2025 Billing Provider: ANGEL CACERES DO Common Visit Codes: [id number] DISCH DAY <30MIN (Patient was seen less than 24 hours prior to being discharged please disregard the 231 billing from the and bill the 238 charge) ANGEL CACERES DO Jul 28, 2025 14:18
== END 2025-07-28 05:56 | disposition home or self-care (01) | DRG 57 ==
LOC: ER 20:45 → ED HOLD 22:59 → PCU 3S 07-22 01:30
PROVIDERS: ADMIT Internal Medicine; ATTEND Family Medicine
DX: G20.A1 Parkinson's disease without dyskinesia, without mention of fluctuations (principal); Z51.5 Encounter for palliative care; G91.2 (Idiopathic) normal pressure hydrocephalus; F02.83 Dementia in other diseases classified elsewhere, unspecified severity, with mood disturbance; F31.9 Bipolar disorder, unspecified; Z88.8 Allergy status to other drugs, medicaments and biological substances; Z91.030 Bee allergy status
CPT/HCPCS: 36415; 70551; 71045; 80053; 80061; 81001; 83036; 83735; 83880; 84443; 84484; 85008; 85025; 85610; 85730; 87081; 92508; 92616; 93306; 97110; 97163; 97530; 99285; A4615; A6213; A6250; A6258; G0378; J1644; J2405; J3480; J7040; J7120